=== PATIENT | male | born 1995 | race Caucasian/White ===

== ENCOUNTER 2025-04-13 03:34 | Emergency (ER) | payer MEDICAID ==
[~2025-04-13] VITALS: Ht 165.1 cm; Wt 60.0 kg
[2025-04-13 03:35] VITALS: TEMP 37.1; O2SAT 100
[2025-04-13] MEDS ORDERED: NALO4SPR BOTHNSTRLS (03:47)
[2025-04-13 06:15] VITALS: BP 90/48; PULSE 69; RESP 16; O2SAT 99
== END 2025-04-13 06:16 | disposition home or self-care (01) ==
LOC: ER 03:34
DX: T40.411A Poisoning by fentanyl or fentanyl analogs, accidental (unintentional), initial encounter (principal); F11.10 Opioid abuse, uncomplicated; Y92.89 Other specified places as the place of occurrence of the external cause
CPT/HCPCS: 99283